=== PATIENT | female | born 1970 | race Caucasian/White ===

== ENCOUNTER 2023-01-27 10:19 | Emergency (ER) | payer SELFPAY ==
[~2023-01-27] VITALS: Ht 157.5 cm; Wt 51.4 kg
[~2023-01-27 10:19] MED LIST: ALBUTEROL S2.5 MG/.5 IN; ATROVENT HFA17 MCG IN; CIPROFLOXACN500 MG PO; CLARITHROMYC500 M2 PO; DARVOCET N-100100 - OR; EQ OMEPRAZOLE20 MG PO; GENTAMICIN15 ML/BTL OD; GENTASOL0.3 % OS; METRONIDAZOL500 MG PO; NAPROSYN500 MG PO; PRILOSEC20 MG OR; ROBAXIN-750750 MG OR; ROBITUSSIN AC10 ML PO; ZOFRAN ODT4 MG OR; ZPAK PO
[2023-01-27] MEDS ORDERED: MEDDOSEPAK PO (11:37)
[2023-01-27 11:54] VITALS: BP 116/805
== END 2023-01-27 11:59 | disposition home or self-care (01) | DRG 918 ==
LOC: ED 10:19
DX: T63.481A Toxic effect of venom of other arthropod, accidental (unintentional), initial encounter (principal); L50.0 Allergic urticaria; K21.9 Gastro-esophageal reflux disease without esophagitis